=== PATIENT | female | born 1955 | race Caucasian/White ===

== ENCOUNTER 2018-01-28 05:40 | Outpatient (CLI) | payer OTHER ==
[~2018-01-28] VITALS: Ht 165.1 cm; Wt 59.0 kg
[2018-01-28] MEDS ORDERED: PRAV10TA PO (12:28)
[2018-01-28] MEDS ORDERED: LEVO50TA6 PO (12:28)
== END 2018-01-28 12:33 ==
LOC: PREOP 05:40
PROVIDERS: ATTEND Surgery
DX: Z01.818 Encounter for other preprocedural examination (principal); K21.9 Gastro-esophageal reflux disease without esophagitis; Z80.0 Family history of malignant neoplasm of digestive organs; Z83.71 Family history of colonic polyps

== ENCOUNTER 2018-02-04 07:01 | Day surgery (SDC) | payer MEDICARE ==
[~2018-02-04 07:01] MED LIST: LEVO50TA6 PO; PRAV10TA PO
[2018-02-04] MEDS ORDERED: NS IV 500 ML 500 ML ONE (07:31)
[2018-02-04] MEDS: NS IV 500 ML 500 ML IV PRN (07:40)
[2018-02-04 07:51] VITALS: BP 123/82
[2018-02-04] MEDS ORDERED: MIDAZOLAM 2 MG/2 ML (VERSED) VIAL ONE ×3 (08:35)
[2018-02-04] MEDS ORDERED: fentaNYL INJECTION 100 MCG/2 ML AMP ONE (08:36)
[2018-02-04] MEDS ORDERED: HURRICAINE EXT TUBE (BENZOCAINE) ONE (08:36)
[2018-02-04] MEDS ORDERED: ONDANSETRON 4 MG/2 ML (SDV) Z0FRAN IVP ONE (08:45)
--- NOTE | 2018-02-04 08:46 | History & Physicial ---
History of Present Illness History of Present Illness Reason for visit/HPI to undergo an upper endoscopy regarding symptoms of gastroesophageal reflux, with concomitant surveillance colonoscopy. Personal history of polyps and a family history of colon cancer. Date of Admission 02/04/18 Date Seen by Provider: Feb 04, 2018 Time Seen by Provider: 08:44 I consulted on this patient on 02/04/18 08:44 Attending Physician Michelle Luke MD Admitting Physician Rosario Perdue DO Consult Allergies and Home Medications Allergies Coded Allergies: morphine (Unverified Allergy, Mild, N/V, 01/28/18) Uncoded Allergies: PENICILLIN (Allergy, Mild, 01/02/11) Home Medications Levothyroxine Sodium 50 Mcg Tablet, 50 MCG PO DAILY, (Reported) Pravastatin Sodium 10 Mg Tablet, 10 MG PO DAILY, (Reported) Patient Home Medication List Home Medication List Reviewed: Yes Past Bfizrtt-Gtznco-Muyyki Hx Patient Social History Marrital Status: Employed/Student: retired Alcohol Use: Denies Use Recreational Drug Use: No Smoking Status: Never a Smoker Former Smoker, Quit: Jan 28, 2003 Recent Foreign Travel: No Contact w/other who traveled: No Recent Hopitalizations: No Seasonal Allergies Seasonal Allergies: Yes Surgeries Yes Gallbladder, Transurethral Resection, Tubal Ligation Respiratory No Cardiovascular Yes High Cholesterol Neurological Yes Headaches /Migraines Reproductive System Hx Reproductive Disorders: No Sexually Transmitted Disease: No 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 Gastrointestinal Yes Gastroesophageal Reflux, Chronic Diarrhea Musculoskeletal Arthritis HEENT Loss of Vision: Bilateral Hearing Impairment: Denies Integumentary Skin/Integumentary Disorders: Eczema Blood Transfusions Adverse Reaction to a Blood Tr: No (N/A) Constitutional: no symptoms reported EENTM: no symptoms reported Respiratory: no symptoms reported Cardiovascular: no symptoms reported Gastrointestinal: see HPI Genitourinary: no symptoms reported Musculoskeletal: no symptoms reported Skin: no symptoms reported Psychiatric/Neurological: No Symptoms Reported Physical Exam Vital Signs Vital Signs - First Documented 02/04/18 07:51 Temp 97.0 Pulse 86 Resp 18 B/P (MAP) 123/82 (96) Pulse Ox 98 O2 Delivery Room Air Capillary Refill : General Appearance: No Apparent Distress Neck: Normal Inspection Respiratory: Lungs Clear Cardiovascular: Regular Rate, Rhythm Gastrointestinal: Non Tender, Soft Extremity: Normal Inspection Neurologic/Psychiatric: Alert, Oriented x3 Skin: Warm/Dry Assessment/Plan Assessment and Plan lady with symptoms of gastroesophageal reflux and a history of polyps. 4 upper endoscopy and colonoscopy. Problems: Admission Diagnosis Admission Status: Other (Outpt Proc) MICHELLE LUKE MD Feb 04, 2018 8:46 am
--- NOTE | 2018-02-04 08:46 | Conscious Sedation/ASA ---
Conscious Sedation Pre-Proced Time Reviewed: 08:46 ASA Class: 2 Airway Mallampati Classification: ([place] appropriate class) I. II. III, IV Lungs Heart ASA score ASA 1: a normal healthy patient ASA 2: a patient with a mild systemic disease (mid diabetes, controlled hypertension, obesity ASA 3: a patient with a severe systemic disease that limits activity (angina , COPD, prior Myocardial infarction) ASA 4: a patient with an incapacitating disease that is a constant threat to life (CHF, renal failure) ASA 5: a moribund patient not expected to survive 24 hrs. (ruptured aneurysm) ASA 6: a declared brain patient whose organs are being harvested. For emergent operations, add the letter E after the classification Grade 1 Sedation Plan: Discussed options with patient/fam Note The patient is an appropriate candidate to undergo the planned procedure, sedation, and anesthesia. The patient immediately re-assessed prior to indication. MICHELLE BARILLAS MD Feb 04, 2018 8:46 am
[2018-02-04] MEDS: fentaNYL INJECTION 100 MCG/2 ML AMP IVP PRN ×2 (08:57→09:10)
[2018-02-04] MEDS: MIDAZOLAM 2 MG/2 ML (VERSED) VIAL IVP PRN ×2 (09:00→09:12)
[2018-02-04] MEDS ORDERED: proPOfol 200 MG/20 ML (DIPRIVAN) VIAL IV ONE (09:15)
--- NOTE | 2018-02-04 09:38 | Endo Procedure Record ---
Endo Procedure Report Date of Procedure Last Colonoscopy: Yes (2010) Feb 04, 2018 Surgeon (s) MICHELLE BARILLAS MD Post Procedure/Op Diagnosis EGD: Date 2 esophagitis. 2 mm duodenal ulcer Colonoscopy:3 millimeter rectal polyp Mild diverticulosis Procedure Performed EGD with antral biopsy for H. pylori Colonoscopy to cecum Snare polypectomy Description of Procedure Anesthesia Type: Conscious Sedation Specimen(s) collected/removed antral mucosa for H. pylori.rectal polyp Description of the Procedure Indication for the procedures: This lady came in for an endoscopic assessment of symptoms of reflux esophagitis and for concomitant surveillance colonoscopy. She had had polyps that 7 years ago and reported a family history of colon cancer in her father. Informed consent was obtained after reviewing the procedures in detail. Description of the procedures: EGD/antral biopsy: She was placed in left lateral decub disposition and her vital signs were monitored. Conscious sedation was achieved initially using Versed and fentanyl . Due to patient discomfort, we had the anesthesiologist administered propofol and achieve adequate sedation. the flexible gastroscope was introduced down the esophagus, past the stomach, into the proximal duodenum. Findings: Esophagus: Grade 2 esophagitis with a short hiatal hernia. Stomach: Streaky gastritis involving the greater curvature of the body. There was no melia ulceration. Duodenum: 2 mm chronic ulcer at the first part. An antral biopsy for H. pylori was obtained She tolerated the procedure well and was turned around in preparation for colonoscopy. Impression: Symptoms of reflux disease. Grade 2 esophagitis, gastritis and duodenal ulcer. Helicobacter status pending. Colonoscopy/snare polypectomy: Digital rectal examination was unremarkable. The colonoscope was introduced into the rectum and advanced all the way to the cecum. The quality of bowel preparation was excellent. The scope was then withdrawn slowly and the mucosa examined in a systematic fashion. Findings: 3 mm rectal polyp that was snared and retrieved Very few sigmoid diverticulae. She tolerated the procedures well and was taken to the nursing area in a stable condition. Impression: Previous history of polyps. 3 mm rectal polyp excised. Recommend repeating in 3 years. Copies To: YANA CHOW XAVIER M MD Feb 04, 2018 9:38 am
--- NOTE | 2018-02-04 09:39 | Discharge Inst-Simple/Standard ---
Discharge Inst-Standard Discharge Medications New, Converted or Re-Newed RX: Other Patient Instructions/Follow Up Plan of Care/Instructions/FU: Repeat colonoscopy in 3 years. Continue Nexium. Follow-up with Dr. Perdue Activity as Tolerated: Yes Discharge Diet: No Restrictions MICHELLE BARILLAS MD Feb 04, 2018 9:39 am
[2018-02-04 09:55] VITALS: BP 110/72
--- NOTE | 2018-02-04 09:59 | Progress Note-Standard ---
Standard Progress Note Progress Notes/Assess & Plan Date Seen by Provider: Feb 04, 2018 Time Seen by Provider: 09:15 Progress/Assessment & Plan Anesthesia Note ([id number]) Anesthesia Type: MAC/rescue sedation ASA Class: 2 Called to Endo for rescue sedation. Patient was already given versed 4 mg IV and fentanyl 100 mcg IV in divided doses prior to my arrival. She was not tolerating the procedure well per Dr Luke and he gave me a brief patient history. The EGD was completed but he only advanced to the sigmoid colon when I was called to assist with the sedation to facilitate completion of the colonoscopy. I gave propofol 60 mg IV in divided doses and patient tolerated the procedure well and maintained spontaneous ventilation throughout. CHARLES TINSLEY DO Feb 04, 2018 09:59
[2018-02-04] MEDS ORDERED: HURRICAINE EXT TUBE (BENZOCAINE) XX ONE (10:00)
[2018-02-04 10:30] VITALS: BP 120/74
[2018-02-04 11:15] VITALS: BP 120/74
== END 2018-02-04 11:15 | disposition home or self-care (01) ==
LOC: ENDO 07:01
PROVIDERS: ATTEND Surgery
DX: K21.0 Gastro-esophageal reflux disease with esophagitis (principal); K62.1 Rectal polyp; K57.30 Diverticulosis of large intestine without perforation or abscess without bleeding; K26.9 Duodenal ulcer, unspecified as acute or chronic, without hemorrhage or perforation; K29.50 Unspecified chronic gastritis without bleeding; Z80.0 Family history of malignant neoplasm of digestive organs; Z86.010 Personal history of colon polyps; E78.00 Pure hypercholesterolemia, unspecified; G43.909 Migraine, unspecified, not intractable, without status migrainosus

== ENCOUNTER 2022-07-18 09:08 | Emergency (ER) | payer MEDICARE ==
[~2022-07-18] VITALS: Ht 166 cm; Wt 61.0 kg
--- NOTE | 2022-07-18 10:01 | ED Upper Extremity ---
General Chief Complaint: Upper Extremity Stated Complaint: LEFT HAND INJURY, FINGERS SWELLING Nursing Triage Note: PT WAS ON A WALK THIS A.M. AND TRIPPED AND FELL, CC OF LT HAND, ABRSIONS BY LT EYE. DENIES LOC History of Present Illness Date Seen by Provider: Jul 18, 2022 Time Seen by Provider: 09:49 Initial Comments Patient to the ER by private conveyance with his significant other chief complaint that about an hour and a half prior to arrival she was out for a walk, stumbled and fell on outstretched hands more on her left than her right. She is right-hand dominant. She is having pain in her third and fourth distal metacarpals of her left hand. She has a small laceration that she doctored at home. She is concerned about a possible fracture in her hand. She brushed her face against the ground but states she did not strike it very hard, is not on blood thinners and does not want a CT at this time. No tetanus vaccine in the last 5 years Allergies and Home Medications Allergies Coded Allergies: morphine (Unverified Allergy, Mild, N/V, 01/28/18) Uncoded Allergies: PENICILLIN (Allergy, Mild, 01/02/11) Patient Home Medication List Home Medication List Reviewed: Yes Cephalexin (Cephalexin) 500 Mg Tablet, 500 MG PO TID Prescribed by: SHANKAR MONAE on 07/18/22 1122 Last Action: New Order Levothyroxine Sodium (Levothyroxine Sodium) 50 Mcg Tablet, 50 MCG PO DAILY, (Reported) Entered as Reported by: TRISTAN JOHNSON on 01/28/18 1228 Pravastatin Sodium (Pravastatin Sodium) 10 Mg Tablet, 10 MG PO DAILY, (Reported) Entered as Reported by: TRISTAN JOHNSON on 01/28/18 1228 Review of Systems Constitutional: No chills, No diaphoresis EENTM: No ear discharge, No ear pain Respiratory: No cough, No short of breath Cardiovascular: No edema, No palpitations Gastrointestinal: No abdominal pain, No nausea, No vomiting Genitourinary: No discharge, No dysuria Musculoskeletal: see HPI; No back pain; joint pain Skin: see HPI All Other Systems Reviewed Negative Unless Noted: Yes Past Qlzmmwt-Ycftgb-Wsizrz Hx Patient Social History Tobacco Use?: Yes Smoking Status: Former Smoker Substance use?: No Alcohol Use?: No Immunizations Up To Date Second COVID19 Vaccination Dino: YES Seasonal Allergies Seasonal Allergies: Yes Past Medical History Surgery/Hospitalization HX: HYPERTENSION, AUTOIMMUNE ISSUES Surgeries: Yes Gallbladder, Transurethral Resection, Tubal Ligation Respiratory: No Cardiac: Yes High Cholesterol Neurological: Yes Headaches /Migraines 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 0.0oz. [id number]; 22.00 BMI Method: General Appearance: WD/WN, no apparent distress HEENT: PERRL/EOMI, pharynx normal Neck: full range of motion, supple, normal inspection Cardiovascular: normal peripheral pulses, regular rate, rhythm Respiratory: no respiratory distress, no accessory muscle use Shoulder: normal inspection, non-tender, no evidence of injury, normal ROM (Left) Elbow/Forearm: normal inspection (Minor abrasion dressed with a bandage on the lateral left elbow), non-tender, normal ROM, Left Wrist: No deformity (Left); Yes ecchymosis (Left), Yes pain (Left), Yes soft tissue tenderness, Yes swelling Hand: normal ROM, Left, bone tenderness (Distal phalanx of the fourth digit and the fifth digit as well as the third and fourth distal metacarpal), ecchymosis, laceration (Closed 1-1/2 cm linear laceration on the palm of the left hand) Neurologic/Tendon: normal sensation, normal motor functions, normal tendon functions, responds to pain, no evidence tendon injury Neurologic/Psychiatric: alert, normal mood/affect, oriented x 3 Progress/Results/Core Measures Results/Orders My Orders Orders - SHANKAR MONAE Wrist, Left, 3 Views Or More (07/18/22 09:52) Hand, Left, 3 Views (07/18/22 09:52) Dipht,Pertuss(Acell),Tet Adult (Boostrix (07/18/22 10:15) Medications Given in ED Current Medications Medications Dose Ordered Sig/Alesha Route Start Time Stop Time Status Last Admin Dose Admin Diphtheria/ Tetanus/Acell Pertussis 0.5 ml ONCE ONCE IM 07/18/22 10:15 07/18/22 10:16 DC 07/18/22 10:39 0.5 ML Vital Signs/I&O 07/18/22 07/18/22 09:21 11:26 Temp 36.9 36.9 Pulse 77 77 Resp 18 18 B/P (MAP) 169/85 (113) 169/85 Pulse Ox 98 98 O2 Delivery Room Air Room Air Blood Pressure Mean: 113 Progress Progress Note : Time: 10:01 Progress Note We will give her a tetanus vaccine, x-ray of the left hand. She is using ice and does not want a thing else for pain right now. Diagnostic Imaging Diagonstic Imaging: Xray Plain Films/CT/US/NM/MRI: other (lrft wrist) Comments [facility] [place], [place] [facility] [id number] PT STATUS: REG ER : 1955 PHYSICIAN: SHANKAR MONAE MD ADMIT DATE: 07/18/22/ER Draft Date of Exam:07/18/22 WRIST, LEFT, 3 VIEWS OR MORE EXAMINATION: Left wrist 3 or more views HISTORY: Wrist injury COMPARISON: None available. FINDINGS: Alignment is normal. No fracture is seen. Joint spaces are normal. IMPRESSION: 1. No fracture. Dictated on workstation # [id number] Dict: 07/18/22 1028 Trans: 07/18/22 1031 [facility] [id number] Interpreted by: ETHEL YOST MD Electronically signed by: Reviewed: Reviewed by Me Diagonstic Imaging: Xray Plain Films/CT/US/NM/MRI: hand Comments [facility], [place] NAME[facility] REC#: [id number] PT STATUS: REG ER : 1955 PHYSICIAN: SHANKAR MONAE MD ADMIT DATE: 07/18/22/ER Signed Date of Exam:07/18/22 HAND, LEFT, 3 VIEWS Indication: Left hand pain AP, oblique, and lateral views of the left hand obtained. There is a small calcification adjacent to the 4th PIP joint seen best on the oblique view, this may be a small avulsion but is of uncertain age, correlate for point tenderness in this area. No other bone abnormality seen Impression: Questionable avulsion of the base of the 4th middle phalanx at the PIP joint. This finding is of uncertain age, correlate with clinical exam. Dictated by: Dictated on workstation # [id number] Dict: 07/18/22 1043 Trans: 07/18/22 1047 CV [id number] Interpreted by: ALONSO JIMENEZ MD Electronically signed by: ALONSO JIMENEZ MD 07/18/22 1047 Reviewed: Reviewed by Me Departure Impression Primary Impression: Fall Qualified Codes: W19.XXXA - Unspecified fall, initial encounter Additional Impressions: Abrasion Laceration Finger fracture, left Qualified Codes: S62.665A - Nondisplaced fracture of distal phalanx of left ring finger, initial encounter for closed fracture Disposition: HOME, SELF-CARE Condition: Stable Departure-Patient Inst. Decision time for Depature: 11:11 Referrals: YANA CHOW DO (PCP/Family) Primary Care Physician REGGIE SHIPLEY MD Patient Instructions: Finger Fracture (DC) Add. Discharge Instructions: Keep your fingers karen taped together to help splint them and immobilize the finger while it heals. You can use ice 20 minutes on every 2 hours while awake for the first 2 to 3 days to reduce swelling and pain. Tylenol 1000 mg every 8 hours as needed for pain. Motrin 800 mg every 8 hours needed for pain. Follow-up with Dr. Shipley, orthopedic surgery if you are having significant pain, loss of mobility in your finger or other worrisome symptoms. If you not having significant improvement in 7 to 10 days in your pain then I suggest you follow-up with him for recheck. All discharge instructions reviewed with patient and/or family. Voiced understanding. Scripts Cephalexin (Cephalexin) 500 Mg Tablet 500 MG PO TID for 3 Days, #9 TAB 0 Refills Prov: SHANKAR MONAE 07/18/22 Copy Copies To 1: REGGIE SHIPLEY MD, TITUS J Jul 18, 2022 10:01
[2022-07-18] MEDS ORDERED: TETANUS,DIPTH,PERTUSS P/F (BOOSTRIX) 0.5 ML VIAL IM ONE (10:15)
--- NOTE | 2022-07-18 10:32 | Diagnostic Imaging Report ---
EXAMINATION: Left wrist 3 or more views HISTORY: Wrist injury COMPARISON: None available. FINDINGS: Alignment is normal. No fracture is seen. Joint spaces are normal. IMPRESSION: 1. No fracture. Dictated by: Dictated on workstation # [id number]
--- NOTE | 2022-07-18 10:48 | Diagnostic Imaging Report ---
Indication: Left hand pain AP, oblique, and lateral views of the left hand obtained. There is a small calcification adjacent to the 4th PIP joint seen best on the oblique view, this may be a small avulsion but is of uncertain age, correlate for point tenderness in this area. No other bone abnormality seen Impression: Questionable avulsion of the base of the 4th middle phalanx at the PIP joint. This finding is of uncertain age, correlate with clinical exam. Dictated by: Dictated on workstation # [id number]
[2022-07-18] MEDS ORDERED: CEPH500T PO (11:22)
[2022-07-18 11:26] VITALS: BP 169/85
== END 2022-07-18 11:26 | disposition home or self-care (01) ==
LOC: EDUNIT# 09:08 → ER 09:12
DX: S62.625A Displaced fracture of middle phalanx of left ring finger, initial encounter for closed fracture (principal); S61.412A Laceration without foreign body of left hand, initial encounter; S60.212A Contusion of left wrist, initial encounter; S50.312A Abrasion of left elbow, initial encounter; Z87.891 Personal history of nicotine dependence; Z88.0 Allergy status to penicillin; Z23 Encounter for immunization; W01.0XXA Fall on same level from slipping, tripping and stumbling without subsequent striking against object, initial encounter; Y93.01 Activity, walking, marching and hiking
CPT/HCPCS: 73110; 73130; 90715

== ENCOUNTER → 2022-08-02 | Outpatient (CLI) | payer MEDICARE ==
[~2022-08-02] MED LIST changes: +CEPH500T PO
--- NOTE | 2022-08-02 10:32 | Diagnostic Imaging Report ---
INDICATION: Left hand pain. FINDINGS: Three views of the left hand show no fracture, dislocation, or other acute abnormalities. There appears to be an old fracture of the volar plate of the base of the middle phalanx of the 5th finger. IMPRESSION: Deformity of the PIP joint of the left 5th finger, consistent with an old volar plate fracture. Dictated by: Dictated on workstation # [id number]
== END ==
LOC: RAD 09:42
PROVIDERS: ATTEND Family Medicine
DX: M20.002 Unspecified deformity of left finger(s) (principal)
CPT/HCPCS: 73140